=== PATIENT | male | born 1955 | race African-American/Black ===

== ENCOUNTER 2016-02-19 14:08 | Emergency (ER) | payer SELFPAY ==
[~2016-02-19] VITALS: Ht 172.7 cm; Wt 68.0 kg
[~2016-02-19 14:08] MED LIST: BACT800T5 PO; CEPH500C3 PO
[2016-02-19 14:49] VITALS: BP 132/74; PULSE 85; RESP 12; TEMP 97.9; O2SAT 97
--- NOTE | 2016-02-19 15:17 | PD ---
HPI Chief Complaint: Medical Clearance Time Seen by Provider: 15:15 Travel History International Travel<30 days: No Contact w/Intl Traveler<30days: No Traveled to known affect area: No History of Present Illness HPI Patient also complaining of a mass medial aspect of his right clavicle. Patient is uncertain as to how long it has been there. States his brother noticed it recently and recommend he come get it checked out. Patient denies any fever, weight loss, or known trauma. Denies any shortness of breath or chest pain. Patient denies anything making it better or worse. Denies any pain with this. PFSH Past Medical History Asthma: Yes Autoimmune Disease: No Blood Disorders: No Anxiety: No Depression: No Cancer: No Cardiovascular Problems: Yes High Cholesterol: No Chemotherapy: No Chest Pain: Yes Congestive Heart Failure: No COPD: No Diminished Hearing: No Endocrine: No Gastrointestinal Disorders: Yes GERD: Yes Glaucoma: No Genitourinary: No Hepatitis: No Hiatal Hernia: No Hypertension: No Musculoskeletal: No Neurologic: No Psychiatric: No Reproductive: No Respiratory: Yes Myocardial Infarction: No Radiation Therapy: No Ulcer: No Past Surgical History AICD: No Appendectomy: No Arteriovenous Shunt: No Cholecystectomy: No Insulin Pump: No Joint Replacement: No Pacemaker: No Social History Alcohol Use: Yes (OCC) Tobacco Use: Yes (1 PPD) Substance Use: No Allergies-Medications (Allergen,Severity, Reaction): Coded Allergies: *MDRO Multi-Drug Resistant Organism (Verified Adverse Reaction, Unknown, ) MRSA abdominal wound 05/2015 Reported Meds & Prescriptions Reported Meds & Active Scripts Active No Active Prescriptions or Reported Medications Review of Systems Except as stated in HPI: all other systems reviewed are Neg Physical Exam Narrative GENERAL: Well-developed, well nourished, in no acute distress, and non-ill appearing. SKIN: Warm and dry. HEAD: Atraumatic. Normocephalic. EYES: Pupils equal and round. EOMI. No scleral icterus. No injection or drainage. ENT: No nasal bleeding or discharge. Mucous membranes pink and moist. NECK: Trachea midline. Supple. No nuclear rigidity. CARDIOVASCULAR: Regular rate and rhythm. No murmur appreciated. RESPIRATORY: No accessory muscle use. No respiratory distress. Clear to auscultation. Breath sounds equal bilaterally. Patient has a nontender firm mass in the medial aspect of the right clavicle is non-mobile, nonindurated, nonfluctuant. Question of for dislocation versus old fracture versus a tumor. MUSCULOSKELETAL: No obvious deformities. No clubbing. No cyanosis. No edema. Full range of motion. NEUROLOGICAL: Awake and alert. No obvious cranial nerve deficits. Motor grossly within normal limits. Normal speech. PSYCHIATRIC: Appropriate mood and affect; insight and judgment normal. Data Data Last Documented VS Vital Signs Date Time Temp Pulse Resp B/P Pulse Ox O2 Delivery O2 Flow Rate FiO2 02/19/16 14:49 97.9 85 12 132/74 97 Room Air Orders Clavicle (02/19/16 ) MDM Medical Decision Making Medical Screen Exam Complete: Yes Emergency Medical Condition: Yes Differential Diagnosis Fracture, dislocation, mass, cyst, other Narrative Course Patient in no obvious distress upon re-evaluation. All pertinent Radiology result(s) discussed with patient. Discussed patient with Dr. Grant who is in agreement with plan of care and disposition. Any questions/concerns in reference to patient diagnosis/condition discussed and clarified prior to patient's discharge. Reinforced sheer importance of close follow up with patient 's primary physician or primary care clinic. Instructed patient to return to ED immediately, if symptoms return/worsen. Pt showed understanding of above instructions. Further instructions and recommendations were detailed in discharge paperwork. Pt ambulated without difficulty out of ED at discharge. Diagnosis Primary Impression: Bone disorder Referrals: [facility] Patient Instructions: General Instructions Additional Instructions: Follow-up with your primary care physician in one to 2 weeks for further evaluation of this clavicle abnormality noted today. Return to the emergency department if symptoms get worse. Scripts No Active Prescriptions or Reported Meds Disposition: 01 DISCHARGE HOME Condition: Stable Shane Cueva Feb 19, 2016 15:17
--- NOTE | 2016-02-19 15:34 | RADRPT ---
EXAM DATE/TIME: 02/19/2016 15:13 [facility] COMPARISON: No previous studies available for comparison. INDICATIONS : Pain, loss of range of motion. MEDICAL HISTORY : Smoker. SURGICAL HISTORY : None. ENCOUNTER: Initial ACUITY: 1 month PAIN SCORE: 4/10 LOCATION: Right clavicle FINDINGS: Degenerative changes are noted involving the right acromioclavicular and glenohumeral joints. There is no acute fracture or dislocation of the right shoulder. CONCLUSION: Degenerative changes involving the right acromioclavicular and glenohumeral joints. Lopez Herrera MD on February 19, 2016 at 15:30 Board Certified Radiologist. This report was verified electronically.
== END 2016-02-19 16:38 | disposition home or self-care (01) ==
LOC: NEPB 14:08
DX: M89.9 Disorder of bone, unspecified (principal)
CPT/HCPCS: 73000; 99283

== ENCOUNTER 2016-03-18 12:16 | Emergency (ER) | payer OTHER ==
[~2016-03-18] VITALS: Ht 172.7 cm; Wt 75.0 kg
[2016-03-18 12:18] VITALS: BP 166/87; PULSE 78; RESP 20; TEMP 97.9; O2SAT 97
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
[2016-03-18] MEDS ORDERED: METHOCARBAMOL 500 MG TAB PO ONE (14:00)
[2016-03-18] MEDS ORDERED: TETANUS/DIPHTHERIA TOXOID ADULT 0.5 ML VIAL IM ONE (14:00)
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
[2016-03-18] MEDS ORDERED: ROBA500T PO (16:15)
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
== END 2016-03-18 16:46 | disposition home or self-care (01) ==
LOC: NEPB 12:16
DX: S00.81XA Abrasion of other part of head, initial encounter (principal); S16.1XXA Strain of muscle, fascia and tendon at neck level, initial encounter; S20.212A Contusion of left front wall of thorax, initial encounter; Z23 Encounter for immunization; F10.20 Alcohol dependence, uncomplicated; F17.210 Nicotine dependence, cigarettes, uncomplicated; V49.9XXA Car occupant (driver) (passenger) injured in unspecified traffic accident, initial encounter; Y93.9 Activity, unspecified; Y92.9 Unspecified place or not applicable; Y99.9 Unspecified external cause status
CPT/HCPCS: 70450; 70486; 71101; 90471; 90714

== ENCOUNTER 2016-07-30 13:20 | Emergency (ER) | payer SELFPAY ==
[~2016-07-30] VITALS: Ht 175.3 cm; Wt 70.0 kg
[2016-07-30 13:20] VITALS: BP 119/69; PULSE 84; RESP 15; TEMP 98.3; O2SAT 97
[~2016-07-30 13:20] MED LIST changes: -BACT800T5 PO; -CEPH500C3 PO; +ROBA500T PO
--- NOTE | 2016-07-30 15:41 | PD ---
HPI Chief Complaint: Complaint Time Seen by Provider: 15:40 Travel History International Travel<30 days: No Contact w/Intl Traveler<30days: No Traveled to known affect area: No History of Present Illness HPI 61 YO M presents to the ED for evaluation of 2 week history of left testicular pain. Patient can recall no acute injury. He denies fevers, chills, abdominal pain, changes in bowel habits, dysuria, penile discharge, unprotected sex. States that he sought treatment today "because I can't go to work." PFSH Past Medical History Asthma: Yes Autoimmune Disease: No Blood Disorders: No Anxiety: No Depression: No Cancer: No Cardiovascular Problems: Yes High Cholesterol: No Chemotherapy: No Chest Pain: Yes Congestive Heart Failure: No COPD: No Diminished Hearing: No Endocrine: No Gastrointestinal Disorders: Yes GERD: Yes Glaucoma: No Genitourinary: No Hepatitis: No Hiatal Hernia: No Hypertension: No Musculoskeletal: No Neurologic: No Psychiatric: No Reproductive: No Respiratory: Yes Myocardial Infarction: No Radiation Therapy: No Ulcer: No Past Surgical History AICD: No Appendectomy: No Arteriovenous Shunt: No Cholecystectomy: No Insulin Pump: No Joint Replacement: No Pacemaker: No Social History Alcohol Use: Yes (DAILY) Tobacco Use: Yes (1.5-2PPD) Substance Use: No Allergies-Medications (Allergen,Severity, Reaction): Coded Allergies: *MDRO Multi-Drug Resistant Organism (Verified Adverse Reaction, Unknown, ) MRSA abdominal wound 05/2015 Reported Meds & Prescriptions Reported Meds & Active Scripts Active Doxycycline Hyclate 100 Mg Cap 100 Mg PO BID Review of Systems Except as stated in HPI: all other systems reviewed are Neg Physical Exam Narrative GENERAL: Well-nourished, well-developed thin black male in no acute distress. SKIN: Focused skin assessment warm/dry. HEAD: Normocephalic. EYES: No scleral icterus. No injection or drainage. NECK: Supple, trachea midline. No JVD or lymphadenopathy. CARDIOVASCULAR: Regular rate and rhythm without murmurs, gallops, or rubs. RESPIRATORY: Breath sounds equal bilaterally. No accessory muscle use. GASTROINTESTINAL: Abdomen soft, non-tender, nondistended. GENITOURINARY: Circumcised. Testes descended bilaterally without evidence of rotation. No lesions or erythema. No urethral discharge. Cremasteric reflex intact. Tender to palpation of the right testicle and right groin. MUSCULOSKELETAL: No cyanosis, or edema. BACK: Nontender without obvious deformity. No CVA tenderness. Data Data Last Documented VS Vital Signs Date Time Temp Pulse Resp B/P Pulse Ox O2 Delivery O2 Flow Rate FiO2 07/30/16 16:15 98.3 64 20 127/81 98 Room Air Orders Us Testicles W Doppler (07/30/16 15:37) Azithromycin Powd Pack (Zithromax Powd P (07/30/16 17:15) Ceftriaxone Inj (Rocephin Inj) (07/30/16 17:15) Sodium Chloride 0.9% Flush (Ns Flush) (07/30/16 17:15) Lidocaine 1% Inj (50 Ml) (Xylocaine 1% I (07/30/16 17:15) MDM Medical Decision Making Medical Screen Exam Complete: Yes Emergency Medical Condition: Yes Differential Diagnosis Testicular torsion versus epididymitis versus inguinal hernia versus hydrocele versus other Narrative Course 61 YO M presents to the ED for evaluation of 2 week history of left testicular pain. Patient can recall no acute injury. He denies fevers, chills, abdominal pain, changes in bowel habits, dysuria, penile discharge, unprotected sex. States that he sought treatment today "because I can't go to work." Vitals reviewed. Physical exam reveals tenderness to palpation of the right testicle and groin. Ultrasound consistent with epididymitis and orchitis. Dr. Santos examine the patient. At this point the patient DOES ADMIT to unprotected sex " a few weeks ago. Patient was administered IV Rocephin, by mouth azithromycin. He is prescribed 14 day course of doxycycline. He is instructed to take all medication as prescribed, avoid sexual activity, follow-up with the health department for complete STD screening. He indicated understanding of the instructions and is agreeable to the care plan. He is stable and discharged home. Diagnosis Primary Impression: Orchitis and epididymitis Referrals: Primary Care Physician Additional Instructions: Take all antibiotics as prescribed. Follow-up with the [facility] for further evaluation and complete STD testing. Return to the ED for any urgent or emergent medical condition. Med/Other Pt SpecificInfo: Prescription(s) given Scripts Doxycycline Hyclate 100 Mg Lug248 Mg PO BID #28 CAP Ref 0 Prov:Kyree Santos MD 07/30/16 Disposition: 01 DISCHARGE HOME Condition: Stable Reba Farias Jul 30, 2016 15:41
[2016-07-30 16:15] VITALS: BP 127/81; PULSE 64; RESP 20; TEMP 98.3; O2SAT 98
--- NOTE | 2016-07-30 16:44 | RADRPT ---
EXAM DATE/TIME: 07/30/2016 15:51 [facility] COMPARISON: No previous studies available for comparison. INDICATIONS : Testicular pain. MEDICAL HISTORY : Gastroesophageal reflux disease. Asthma. Dyspnea. SURGICAL HISTORY : Left leg fracture repair. ENCOUNTER: Initial ACUITY: 2 weeks PAIN SCORE: 10/10 LOCATION: Bilateral testicles. MEASUREMENTS: RIGHT TESTICLE: 4.3 x 3.0 x 2.6 cm LEFT TESTICLE: 4.3 x 3.3 x 2.1cm FINDINGS: RIGHT TESTICLE: Mild diffuse heterogeneous echotexture. Blood flow is symmetric and within normal limits. Small compl ex appearing hydrocele containing septations. Small cyst in the right epididymis, as above. Varicocel e LEFT TESTICLE: Homogeneous echotexture without intra or extratesticular mass. Blood flow is symmetric and within no rmal limits. Prominent varicocele with reflux. Epididymis is within normal limits. SCROTUM: Within normal limits. CONCLUSION: 1. Heterogeneous right testicular echotexture without focal intratesticular mass. Differential consid erations include seminiferous tubular atrophy and sequela of testicular trauma or orchitis. Normal te sticular vascularity at this time. 2. Complex right-sided hydrocele likely reflects evolving blood products although infection may have a similar appearance but there is no hyperemia to support infection. Clinical correlation is recommen ded. 3. Bilateral, left greater than right, varicoceles. 4. Small right epididymal cyst. Clifford Colin MD on July 30, 2016 at 16:32 Board Certified Radiologist. This report was verified electronically.
[2016-07-30] MEDS ORDERED: LIDOCAINE HCL 1% 50 ML VIAL XX ONE (17:15)
[2016-07-30] MEDS ORDERED: AZITHROMYCIN PWD FOR SUSP 1 GM PACKET PO ONE (17:15)
[2016-07-30] MEDS ORDERED: SODIUM CHLORIDE 0.9% FLUSH 10 ML FLUSH IVF PRN (17:15)
[2016-07-30] MEDS ORDERED: DOXY100C PO (17:19)
== END 2016-07-30 18:23 | disposition home or self-care (01) ==
LOC: NEPD 13:20
DX: N45.2 Orchitis (principal); N45.1 Epididymitis; F17.210 Nicotine dependence, cigarettes, uncomplicated
CPT/HCPCS: 76870; 93975; J0696; 96372